=== PATIENT | male | born 2005 | race Caucasian/White ===

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

== ENCOUNTER 2024-05-27 08:18 | Emergency (ER) | payer OTHER, SELFPAY ==
[2024-05-27 08:30] VITALS: BP 133/64; PULSE 60; RESP 16; TEMP 36.7; O2SAT 100
[2024-05-27 08:41] LABS: EDUAAPPEAR Clear; EDUABILI Negative (Negative); EDUABLOOD Negative (Negative); EDUACOLOR1 Yellow; EDUAGLUCOSE Negative (Negative); EDUAKETONE Negative (Negative); EDUALEUKO Negative (Negative); EDUANITRATE Negative (Negative); EDUAPROTEIN Negative (Negative); EDUAUROBILI 0.2
--- NOTE | 2024-05-27 08:46 | ED.MALEGU ---
HPI - Male Genitourinary General Chief complaint: Urogenital-Male Stated complaint: BURNING URINATION/URGENCY Time Seen by Provider: 05/27/24 08:46 Source: patient Mode of arrival: ambulatory Limitations: no limitations History of Present Illness HPI Narrative: 18 year-old male presents with complaint dysuria for 3 days. Reports pain from the tip of his penis to the base of his shaft. Denies redness, rash, swelling. No pain to testicles. Reports urinary urgency, dribbling with urination. No abdominal or back pain. Afebrile. Patient is smiling and talkative. No concern for STI. All systems reviewed and negative except as noted above. Related Data Allergies Allergy/AdvReac Type Severity Reaction Status Date / Time No Known Allergies Allergy Verified 05/27/24 08:30 Review of Systems Review of Systems: CONSTITUTIONAL: Denies fever, chills, or sweats. EYES: Denies visual changes, redness, or discharge. ENT: Denies rhinorrhea, congestion, sore throat, or otalgia. CARDIOVASCULAR: Denies chest pain, palpitations, or edema. RESPIRATORY: Denies cough or dyspnea. GASTROINTESTINAL: Denies abdominal pain, nausea, vomiting, or diarrhea. GENITOURINARY: Reports dysuria, decreased output, urgency. Denies hematuria. SKIN: Denies rash or itching. MUSCULOSKELETAL: Denies back pain, joint pain, or myalgia. NEUROLOGIC: Denies headache, numbness, or weakness. PSYCHIATRIC: Denies anxiety or depression. All other systems reviewed are negative, except as documented in HPI. PMFSH Past Medical History Medical History No active medical problems Social History Social History Smoking status: Never smoker Comments At time of signature, agree with nursing past medical, surgical, social and family history. There is no relevant family history pertinent to the presenting complaint. Exam Narrative: GENERAL: This is a well-nourished, well-developed patient, in no apparent distress. HEAD: normocephalic, atraumatic. EYES: PERRL. Sclera clear/white. Vision is grossly intact. EARS: External ears normal NOSE: External nose normal NECK: Neck supple, non-tender without lymphadenopathy, masses or thyromegaly. CARDIOVASCULAR: Regular rate and rhythm without murmurs, gallops, or rubs. RESPIRATORY: Clear to auscultation. Breath sounds equal bilaterally. No wheezes, rales, or rhonchi. SKIN: warm, Dry, intact with no suspicious lesions or rash, good texture and turgor. NEURO: awake, alert, and oriented to person, place and time. There were no obvious focal neurologic abnormalities. EXTREMITIES: No joint tenderness, effusion, or edema noted. BACK: Nontender without deformity. No CVA tenderness. Course Course Level of Care: Express Care Visit Vital Signs Vital signs: Vital Signs Temperature 36.7 C 05/27/24 08:30 Pulse Rate 60 05/27/24 08:30 Respiratory Rate 16 05/27/24 08:30 Blood Pressure 133/64 05/27/24 08:30 Pulse Oximetry 100 05/27/24 08:30 Temperature 36.7 C 05/27/24 08:30 Pulse Rate 60 05/27/24 08:30 Respiratory Rate 16 05/27/24 08:30 Blood Pressure 133/64 05/27/24 08:30 Pulse Oximetry 100 05/27/24 08:30 Reviewed MDM - Male Genitourinary MDM Narrative Medical decision making narrative: Normal urinalysis. Urine culture ordered. Will prescribe antibiotic today due to patient's symptoms. Patient is well-appearing, nontoxic. Afebrile. Refused STI testing. Referred to Urology antipyrine care physician for further evaluation if symptoms not improving. Recommend he go to the ER for any worsening of his symptoms. Please be advised this is a medical document. It is intended for [id number] communication. It is written in medical language and may contain unfamiliar abbreviations or verbiage. Medical documents are intended to carry relevant information, facts as evident, and the clinical opinion of the practitioner at the time of the encounter. This report may have been done utilizing a voice recognition system. Attempts have been made to correct errors. However, there may be uncorrected grammatical, spelling, and recognition errors present. The file time of this note does not necessarily represent the time of service. Lab Data Labs: Lab Results 05/27/24 Range/Units 08:39 POC Urine Color Yellow POC Urine Clarity Clear POC Urine pH 7.0 POC Ur Specif [place] 1.020 POC Urine Protein Negative (Negative) POC Ur Glucose (UA) Negative (Negative) POC Urine Ketones Negative (Negative) POC Urine Blood Negative (Negative) POC Urine Nitrite Negative (Negative) POC Urine Bilirubin Negative (Negative) POC Urine Urobilinogen 0.2 POC U Leukocyte Esteras Negative (Negative) Discharge Plan Discharge Clinical Impression: Dysuria Patient Disposition: Home, Self-Care Condition: Stable Instructions: Antibiotic Form, Dysuria (ED) Additional Instructions: Your urinalysis was normal today. A urine culture was ordered and results will take 48-72 hours. I am prescribing an antibiotic today due to your symptoms. Take antibiotic as prescribed until gone. Take Tylenol or ibuprofen every 6-8 hours as needed for pain. Drink at least 64 oz water a day. Follow-up with primary care physician if symptoms are not improving. For any worsening of your symptoms go to the ER. Patient Language: Frisian Prescriptions: New amoxicillin-pot clavulanate 875-125 mg tablet 1 tablet PO Q12H 7 Days Qty: 14 0RF Follow-up/Referrals: Kayla Hurt MD [Physician] - (follow up with urologist if symptoms not improving) Nirav Menendez MD [Physician] - (establish care with a primary care physician) PHYSICIAN,VITAMIN MANAGER [Primary Care Provider] - Time of Disposition: 08:53
== END 2024-05-27 08:59 | disposition home or self-care (01) ==
PROVIDERS: Emergency Provider Nurse Practitioner Family
DX: R30.0 Dysuria (principal)
CPT/HCPCS: 81003; 87086; 99213; G0463

== ENCOUNTER 2024-10-31 08:34 | Emergency (ER) | payer OTHER, SELFPAY ==
[2024-10-31 08:38] VITALS: BP 143/80; PULSE 76; RESP 16; TEMP 36.9; O2SAT 100
--- NOTE | 2024-10-31 08:41 | ED_ITS ---
HPI - Male Genitourinary General Chief complaint: Urogenital-Male Stated complaint: Bladder Infection Symptoms Time Seen by Provider: 10/31/24 08:41 Source: patient Mode of arrival: ambulatory Limitations: no limitations History of Present Illness HPI Narrative: 19-year-old male presents with complaint of intermittent bladder spasms and cramping after urinating for the past 3 weeks. No other symptoms. No concern for STI. Denies fever chills. No pain at this time. Denies back pain. Denies blood in urine. Patient had similar symptoms in May. Was given Augmentin states that symptoms improved about 10 days after he had been seen. All Systems reviewed and negative except as noted above. Related Data Home Medications ?Medication ?Instructions ?Recorded ?Confirmed ?Last Taken ?Type No Home Medications 10/31/24 10/31/24 Unknown History Allergies Allergy/AdvReac Type Severity Reaction Status Date / Time No Known Allergies Allergy Verified 10/31/24 08:40 Review of Systems Review of Systems: CONSTITUTIONAL: Denies fever, chills, or sweats. EYES: Denies visual changes, redness, or discharge. ENT: Denies rhinorrhea, congestion, sore throat, or otalgia. CARDIOVASCULAR: Denies chest pain, palpitations, or edema. RESPIRATORY: Denies cough or dyspnea. GASTROINTESTINAL: Denies abdominal pain, nausea, vomiting, or diarrhea. GENITOURINARY: Denies dysuria or hematuria. Reports bladder spasms and cramping after urination SKIN: Denies rash or itching. MUSCULOSKELETAL: Denies back pain, joint pain, or myalgia. NEUROLOGIC: Denies headache, numbness, or weakness. PSYCHIATRIC: Denies anxiety or depression. All other systems reviewed are negative, except as documented in HPI. PMFSH Past Medical History Medical History No active medical problems Social History Social History Smoking status: Never smoker Comments At time of signature, agree with nursing past medical, surgical, social and family history. There is no relevant family history pertinent to the presenting complaint. Exam Narrative: GENERAL: This is a well-nourished, well-developed patient, in no apparent distress. HEAD: normocephalic, atraumatic. EYES: PERRL. Sclera clear/white. Vision is grossly intact. EARS: External ears normal NOSE: External nose normal NECK: Neck supple, non-tender without lymphadenopathy, masses or thyromegaly. CARDIOVASCULAR: Regular rate and rhythm without murmurs, gallops, or rubs. RESPIRATORY: Clear to auscultation. Breath sounds equal bilaterally. No wheezes, rales, or rhonchi. GASTROINTESTINAL: Abdomen soft, non-tender, nondistended. Bowel sounds are active. No hepato-splenomegaly, or palpable masses. No guarding. SKIN: warm, Dry, intact with no suspicious lesions or rash, good texture and turgor. NEURO: awake, alert, and oriented to person, place and time. There were no obvious focal neurologic abnormalities. EXTREMITIES: No joint tenderness, effusion, or edema noted. Course Course Level of Care: Express Care Visit Vital Signs Vital signs: Vital Signs Temperature 36.9 C 10/31/24 08:38 Pulse Rate 76 10/31/24 08:38 Respiratory Rate 16 10/31/24 08:38 Blood Pressure 143/80 H 10/31/24 08:38 Pulse Oximetry 100 10/31/24 08:38 Oxygen Delivery Room Air 10/31/24 08:38 Temperature 36.9 C 10/31/24 08:38 Pulse Rate 76 10/31/24 08:38 Respiratory Rate 16 10/31/24 08:38 Blood Pressure 143/80 H 10/31/24 08:38 Pulse Oximetry 100 10/31/24 08:38 Oxygen Delivery Room Air 10/31/24 08:38 Reviewed MDM - Male Genitourinary MDM Narrative Medical decision making narrative: Urinalysis today normal. Urine culture ordered. Patient's visit in May was a normal urinalysis and negative urine culture. He does not have a primary care physician for follow-up. Will refer to urologist for further evaluation. He is not having any difficulty urinating, starting stream or concerns for urinary retention. Patient is well-appearing, nontoxic. Lab Data Labs: Lab Results 10/31/24 Range/Units 08:51 POC Urine Color Yellow POC Urine Clarity Clear POC Urine pH 7.0 POC Ur Specif [place] 1.020 POC Urine Protein Negative (Negative) POC Ur Glucose (UA) Negative (Negative) POC Urine Ketones Negative (Negative) POC Urine Blood Negative (Negative) POC Urine Nitrite Negative (Negative) POC Urine Bilirubin Negative (Negative) POC Urine Urobilinogen 0.2 POC U Leukocyte Esteras Negative (Negative) Discharge Plan Discharge Clinical Impression: Bladder spasms Patient Disposition: Home Condition: Stable Additional Instructions: Your urinalysis was normal today. A urine culture was ordered and results will take 24-48 hours. If your urine culture is positive we will call you at that time and prescribed an antibiotic. Your symptoms would be better evaluated by a urologist. Call today and schedule a follow-up appointment. If you have severe pain, vomiting, fever go to the ER. Patient Language: Khmer Prescriptions: No Action No Home Medications Follow-up/Referrals: Rolf Lunsford MD [Physician] - (schedule follow up appointment with urology for further evaluation) Osmani Rosales MD [Physician] - (Establish care with a primary care physician) PHYSICIAN,CERTIFIED ORTHOPTIST [Primary Care Provider] - Stand Alone Forms: Work/School Release IP Time of Disposition: 09:00
[2024-10-31 09:03] LABS: EDUAAPPEAR Clear; EDUABILI Negative (Negative); EDUABLOOD Negative (Negative); EDUACOLOR1 Yellow; EDUAGLUCOSE Negative (Negative); EDUAKETONE Negative (Negative); EDUALEUKO Negative (Negative); EDUANITRATE Negative (Negative); EDUAPH 7.0; EDUAPROTEIN Negative (Negative); EDUASPGRAVITY 1.020; EDUAUROBILI 0.2
== END 2024-10-31 09:10 | disposition home or self-care (01) ==
PROVIDERS: Emergency Provider Nurse Practitioner Family
DX: N32.89 Other specified disorders of bladder (principal)
CPT/HCPCS: 81003; 87086; 99213; G0463